=== PATIENT | male | born 1945 | race Caucasian/White ===

== ENCOUNTER → 2018-03-09 | Outpatient (CLI) | payer MEDICARE, BC ==
[~2018-03-09] MED LIST: AMIT8CAP6 PO; ATEN50TA PO; ATOR10TA15 PO; DOXA1TAB35 PO; GABA300C5 PO; GLIM2TAB PO; HYDR-3583 PO; HYDR25TA5 PO; MAGN400T2 PO; METF1000 PO; MULT-65 PO; OMEP20CA2 PO; TEMA30CA PO
[2018-03-09 13:56] LABS: AUTOMATED NEUTROPHIL # 5.7 TH/MM3 (1.8-7.7); BASOPHIL % 0.4 % (0.0-2.0); EOSINOPHIL # 0.1 TH/MM3 (0-0.4); EOSINOPHIL % 1.6 % (0.0-4.0); HEMATOCRIT 41.7 % (39.0-51.0); HEMOGLOBIN 13.6 GM/DL (13.0-17.0); LYMPH % 16.9 % (9.0-44.0); LYMPHOCYTE # 1.4 TH/MM3 (1.0-4.8); MEAN CELL VOLUME 90.8 FL (80.0-100.0); MEAN CORPUSCULAR HEMOGLOBIN 29.7 PG (27.0-34.0); MEAN CORPUSCULAR HGB CONC 32.7 % (32.0-36.0); MEAN PLATELET VOLUME 6.8 FL (7.0-11.0); MONOCYTE # 0.8 TH/MM3 (0-0.9); NEUT % 71.1 % (16.0-70.0); PLATELET COUNT 246 TH/MM3 (150-450); RED BLOOD COUNT 4.59 MIL/MM3 (4.50-5.90); RED CELL DISTRIBUTION WIDTH 12.9 % (11.6-17.2)
== END ==
LOC: PHPRE 12:46
PROVIDERS: ATTEND Pain Medicine Interventional Pain Medicine
DX: Z01.810 Encounter for preprocedural cardiovascular examination (principal); Z01.812 Encounter for preprocedural laboratory examination; M54.5 Low back pain
CPT/HCPCS: 36415; 84132; 85025

== ENCOUNTER → 2018-03-16 | Day surgery (SDC) | payer MEDICARE, BC ==
[~2018-03-16] VITALS: Ht 175.3 cm; Wt 73.0 kg
[~2018-03-16] MED LIST changes: +BUPIVACAINE/EPINEPHRINE 0.75% PF 30 ML VIAL ONE; +CHLORHEXIDINE GLUCONATE 2 % 1 PACK (2 CLOTHS) TOPICAL PRN; +LACTATED RINGER'S 1000 ML IV PRN; +MEPERIDINE HCL 50 MG/ML VIAL ONE; +METOPROLOL TARTRATE 25 MG TAB PO PRN; +POVIDONE IODINE 5% (ANTISEPSIS KIT) 4 APPLICATIONS EACH NARE PRN; +SODIUM CHLORID 0.9% 500 ML IV PRN; +ceFAZolin 1,000 MG/NS 100 ML IV SCH
[2018-03-16 14:17] VITALS: TEMP 98.8
--- NOTE | 2018-03-16 14:35 | MP ---
cc: Osman Perez MD DATE OF OPERATION: 03/16/2018 DATE OF : 04/28/1947. PROCEDURES PERFORMED: 1. Implantation of Medtronic quad electrode array for right cluneal nerve stimulation. 2. Implantation of Medtronic quad electrode array for left cluneal nerve stimulation. 3. Implantation of Medtronic quad electrode array for thoracic paravertebral medial branch stimulation. 4. Implantation of Medtronic quad electrode array for thoracic paravertebral medial branch stimulation. PREPROCEDURE DIAGNOSIS: Failed back syndrome. POSTPROCEDURE DIAGNOSIS: Failed back syndrome. PROCEDURE NOTE: IV was started in the holding area. The patient was given IV antibiotics. Surgical consent form was signed. The surgical site was marked and the patient was taken to the operating room, placed in the prone position, sedated and monitored by Anesthesia. His back was prepped with ChloraPrep and draped with sterile drapes. Then, just above his lumbar incision, a 2-inch incision was made and a subcutaneous pocket was created. Then, a tunneling device was used to tunnel a Medtronic quad electrode over the right cluneal nerves and this was anchored to the underlying fascia using a Silastic anchor circumferentially tied by two 2-0 Ethibond sutures. Then, in exactly the same manner, the tunneling device was used to pass a Medtronic quad electrode over the left cluneal nerve and then in a similar fashion a tunneling device was used to place a right and then a left thoracic paravertebral lead. All of these and then were anchored to the underlying fascia using the Silastic anchor circumferentially tied by two 2-0 Ethibond sutures. Then, another incision was made in the patient's right flank and a subcutaneous pocket was created. The tunneling device was used to tunnel the leads from the lumbar incision to the right flank incision and there they were connected to distal extension wires, and the connection was covered with a Silastic cover circumferentially tied at each end using 2-0 Ethibond suture. Then, impedance was checked at the bedside and found to be appropriate through all of the electrodes. Then, a second tunnel was made to pass the distal extension wires to exit further on the patient's right flank. Then, the lumbar incision and right flank incision were irrigated with Betadine. Closure took place with 3-0 Monocryl in the subcuticular tissue and 3-0 nylon on the skin. The incisions were covered with sterile adhesive dressings, and the patient was taken to the recovery room with stable vital signs, neurologically intact. W. MD EMILIO Johnson/ROYA , 02:15 PM , 02:33 PM
[2018-03-16 14:50] VITALS: BP 131/74; PULSE 65; RESP 14; O2SAT 95
== END | disposition home or self-care (01) ==
LOC: PHSDC 09:14
PROVIDERS: ATTEND Pain Medicine Interventional Pain Medicine
DX: M96.1 Postlaminectomy syndrome, not elsewhere classified (principal); I48.91 Unspecified atrial fibrillation; I10 Essential (primary) hypertension; E11.9 Type 2 diabetes mellitus without complications; Z79.84 Long term (current) use of oral hypoglycemic drugs; Z98.1 Arthrodesis status
CPT/HCPCS: 00400; 64555; C1778; J0690; J2175; J7120

== ENCOUNTER → 2018-03-26 | Day surgery (SDC) | payer MEDICARE, BC ==
[~2018-03-26] VITALS: Ht 175.3 cm; Wt 72.0 kg
[~2018-03-26] MED LIST changes: +*MEPERIDINE 25 MG INJ VIAL PERIprocedural Use ONLY ONE; +BUPIVACAINE/EPINEPHRINE 0.5% PF 30 ML VIAL ONE; -BUPIVACAINE/EPINEPHRINE 0.75% PF 30 ML VIAL ONE; -MEPERIDINE HCL 50 MG/ML VIAL ONE; +VANCOMYCIN 500 MG/NS 100 ML IV PRN
[2018-03-26 12:35] VITALS: PULSE 73
[2018-03-26 13:00] VITALS: TEMP 98.2
[2018-03-26 13:05] VITALS: PULSE 69
[2018-03-26 13:50] VITALS: BP 120/72; PULSE 73; RESP 14; O2SAT 95
--- NOTE | 2018-03-26 14:00 | MP ---
cc: Osman Perez MD DATE OF OPERATION: 03/26/2018 PROCEDURE PERFORMED: Implantation of Medtronic dual channel of rechargeable of pulse generator. PREPROCEDURE DIAGNOSIS: Lumbar radiculopathy. POSTPROCEDURE DIAGNOSIS: Lumbar radiculopathy. DESCRIPTION OF PROCEDURE: IV was started in the holding area. The patient was given IV antibiotics. Surgical site was marked and a surgical consent was signed. The patient was taken to the operating room and given LMA anesthesia, then placed in the left lateral decubitus position. The distal extension guidewire in the patient's right flank was prepped with alcohol and cut with sterile scissors. All pressure points were checked and padded. Then, he was prepped with ChloraPrep in the lumbar, right flank and abdomen and draped with sterile drapes. Then, the right flank incision was reopened by cutting the sutures. The distal extension wires were disconnected from the stimulating leads by loosening Esteban screws. Then, an incision was made in the right subcostal area to create a subcutaneous pocket. A tunneling device was used to tunnel distal extension wires from the abdominal incision to the right flank incision, where they were connected to the stimulating leads by tightening Esteban screws and covering the connection with a Silastic cover, secured at both ends with Ethibond suture. Then, the distal extension wires in the abdominal incision were connected to a Medtronic dual channel rechargeable pulse generator by tightening Esteban screws. Then, impedance was checked at the bedside and found to be appropriate in all of the electrodes. The pulse generator then was placed in the subcutaneous pocket and anchored to the underlying fascia using two 2-0 Ethibond sutures. Then, the incisions were irrigated with Betadine. Closure took place with 3-0 Monocryl in the subcuticular tissue and 3-0 nylon on the skin. The incisions were covered with sterile adhesive dressings, and the patient was taken to the recovery room with stable vital signs, neurologically intact. MD EMILIO White/WILIAM , 01:47 PM , 01:58 PM
== END | disposition home or self-care (01) ==
LOC: PHSDC 09:19
PROVIDERS: ATTEND Pain Medicine Interventional Pain Medicine
DX: M54.16 Radiculopathy, lumbar region (principal)
CPT/HCPCS: 00300; 64590; C1820; J0690; J2175; J3010; J3370; J7120